=== PATIENT | male | born 1995 | race Caucasian/White ===

== ENCOUNTER 2024-08-24 22:39 | Emergency (ER) | payer MEDICAID, OTHER ==
[~2024-08-24] VITALS: Ht 172.7 cm; Wt 102.0 kg
[2024-08-24 22:48] VITALS: O2SAT 98
[2024-08-24 23:30] LABS: BASOPHILS % 0.9 % (0.0-2.0); EOSINOPHILS % 1.8 % (0.0-5.0); HEMATOCRIT. 39.7 % (42.0-52.0); HEMOGLOBIN. 13.7 g/dL (14.0-18.0); LYMPHOCYTES % 33.8 % (20.0-50.0); MEAN CORPUSCULAR HEMOGLOBIN 31.1 pg (28.0-32.0); MEAN CORPUSCULAR HGB CONC 34.6 g/dL (31.0-37.0); MEAN CORPUSCULAR VOLUME 89.8 fL (80.0-94.0); MEAN PLATELET VOLUME 9.4 fl (7.4-10.4); MONOCYTES % 10.2 % (2.0-8.0); NEUTROPHILS % 53.3 % (40.0-76.0); PLATELET 242 x1000/uL (130-400); RED BLOOD CELL COUNT 4.42 mill/uL (4.7-6.1); RED CELL DISTRIBUTION WIDTH 13.2 % (11.6-14.6); WHITE BLOOD COUNT 8.4 x1000/uL (4.5-11.0)
[2024-08-24 23:37] LABS: CHLORIDE 106 mEq/L (98-107); POTASSIUM 3.8 mEq/L (3.5-5.1); SODIUM 141 mEq/L (136-145)
[2024-08-24 23:38] LABS: CALCIUM 9.3 mg/dL (8.7-10.4); CARBON DIOXIDE 27 mEq/L (21-32)
[2024-08-24 23:40] LABS: PARTIAL THROMBOPLASTIN TIME 27.4 sec (23.4-31.0); PROTHROMBIN TIME 10.6 sec (9.6-11.0)
[2024-08-24 23:43] LABS: CREATININE 1.2 mg/dL (0.6-1.3); GLUCOSE 114 mg/dL (70-105); UREA NITROGEN BLOOD 11 mg/dL (9-23)
[2024-08-24 23:44] LABS: ETHANOL BLOOD < 10 mg/dL (<10)
[2024-08-24] MEDS: CHLORDIAZEPOXIDE 25MG CAPSULE PO ONE (23:54)
[2024-08-25 00:09] LABS: TROPONIN I HIGH SENSITIVITY < 4 ng/L (3.0-53)
[2024-08-25 01:47] LABS: TROPONIN I HIGH SENSITIVITY < 4 ng/L (3.0-53)
[2024-08-25] MEDS ORDERED: HYDR-459 MT (02:17)
[2024-08-25 02:24] VITALS: BP 144/80; PULSE 89; RESP 16; TEMP 36.9; O2SAT 99
== END 2024-08-25 02:39 | disposition home or self-care (01) ==
LOC: ER 22:39
DX: R07.89 Other chest pain (principal); F15.10 Other stimulant abuse, uncomplicated; R03.0 Elevated blood-pressure reading, without diagnosis of hypertension; F10.20 Alcohol dependence, uncomplicated; Y90.9 Presence of alcohol in blood, level not specified
CPT/HCPCS: 36415; 71045; 80048; 80320; 83880; 84484; 85025; 93005; 99285; G0480

== ENCOUNTER 2024-12-03 21:04 | Emergency (ER) | payer OTHER ==
[~2024-12-03] VITALS: Ht 180.3 cm; Wt 99.6 kg
[~2024-12-03 21:04] MED LIST: HYDR-459 MT
[2024-12-03 21:07] VITALS: O2SAT 95
[2024-12-03] MEDS ORDERED: LORAZEPAM 2MG/ML UD SYRINGE IV SCH (22:00)
[2024-12-03 22:19] LABS: BASOPHILS % 0.7 % (0.0-2.0); EOSINOPHILS % 0.3 % (0.0-5.0); HEMATOCRIT. 41.2 % (42.0-52.0); HEMOGLOBIN. 14.3 g/dL (14.0-18.0); LYMPHOCYTES % 23.6 % (20.0-50.0); MEAN PLATELET VOLUME 9.5 fl (7.4-10.4); MONOCYTES % 11.8 % (2.0-8.0); NEUTROPHILS % 63.6 % (40.0-76.0); PLATELET 292 x1000/uL (130-400); RED BLOOD CELL COUNT 4.66 mill/uL (4.7-6.1); RED CELL DISTRIBUTION WIDTH 13.3 % (11.6-14.6)
[2024-12-03] MEDS: SODIUM CHLORIDE 0.9% 1,000 ML IV ONE (22:23)
[2024-12-03 22:31] LABS: CREATININE 1.1 mg/dL (0.6-1.3); UREA NITROGEN BLOOD 20 mg/dL (9-23)
[2024-12-03 22:33] LABS: TROPONIN I HIGH SENSITIVITY < 4 ng/L (3.0-53)
[2024-12-03] MEDS: FOLIC ACID 1 MG, THIAMINE HCL 100 MG, MVI, ADULT NO.1 10 ML in DEXTROSE 5% WATER 1,000 ML IV ONE (23:01)
[2024-12-03] MEDS: CHLORDIAZEPOXIDE 25MG CAPSULE PO ONE (23:15)
[2024-12-03] MEDS: CHLORDIAZEPOXIDE 25MG CAPSULE PO NR (23:16)
[2024-12-03] MEDS: LORAZEPAM 2MG/ML UD SYRINGE IV NR (23:16)
[2024-12-03 23:59] LABS: *AMPHETAMINES SCREEN URINE PRESUMPTIVE POSITIVE (NEGATIVE); *BARBITURATES SCREEN URINE NEGATIVE (NEGATIVE); *BENZODIAZEPINES SCREEN URINE PRESUMPTIVE POSITIVE (NEGATIVE); *COCAINE SCREEN URINE NEGATIVE (NEGATIVE); CANNABINOID URINE SCREEN NEGATIVE (NEGATIVE); ECSTASY MDMA SCREEN URINE CONF.TEST INDICATED (NEGATIVE); METHADONE URINE SCREEN NEGATIVE (NEGATIVE); OPIATES URINE SCREEN NEGATIVE (NEGATIVE); PHENCYCLIDINE URINE SCREEN NEGATIVE (NEGATIVE)
[2024-12-04] MEDS: SODIUM CHLORIDE 0.9% 1,000 ML IV ONE (01:40)
[2024-12-04 03:02] VITALS: BP 125/82; PULSE 110; RESP 20; TEMP 36.5; O2SAT 100
[2024-12-04] MEDS ORDERED: GABA800T97 PO (14:47)
[2024-12-04] MEDS ORDERED: OLAN15TA97 PO (14:49)
[2024-12-04] MEDS ORDERED: BUPR450T5 PO (14:49)
== END 2024-12-04 03:25 | disposition home or self-care (01) ==
LOC: ER 21:04
DX: F10.20 Alcohol dependence, uncomplicated (principal); F15.20 Other stimulant dependence, uncomplicated; F17.200 Nicotine dependence, unspecified, uncomplicated; R07.9 Chest pain, unspecified; Y90.9 Presence of alcohol in blood, level not specified
CPT/HCPCS: 80305; 80048; 80307; 80329; 80320; 85025; 84484; 36415; 71045; 93005; 96365; 96366; 99285; 96361; J3490 ×2; J2060; J3411; J7070; J7030 ×2; G0480

== ENCOUNTER 2024-12-20 06:51 | Emergency (ER) | payer OTHER ==
[~2024-12-20] VITALS: Ht 177.8 cm; Wt 80.0 kg
[~2024-12-20 06:51] MED LIST changes: +BUPR-46 PO; +BUPR8TAB3 SL; +FOLI-43 PO; +GABA800T97 PO; -HYDR-459 MT; +MIRT45TA83 PO; +OLAN15TA97 PO; +THIA100T72 PO
[2024-12-20 06:56] VITALS: O2SAT 95
[2024-12-20 07:25] LABS: HEMATOCRIT. 40.0 % (42.0-52.0); HEMOGLOBIN. 13.4 g/dL (14.0-18.0); MEAN PLATELET VOLUME 10.2 fl (7.4-10.4); PLATELET 213 x1000/uL (130-400); RED BLOOD CELL COUNT 4.44 mill/uL (4.7-6.1); RED CELL DISTRIBUTION WIDTH 13.7 % (11.6-14.6)
[2024-12-20] MEDS: LORAZEPAM 2MG/ML UD SYRINGE IV NR (07:25)
[2024-12-20 07:37] LABS: CREATININE 1.0 mg/dL (0.6-1.3); UREA NITROGEN BLOOD 10 mg/dL (9-23)
[2024-12-20 07:38] LABS: TROPONIN I HIGH SENSITIVITY < 4 ng/L (3.0-53)
[2024-12-20 08:25] LABS: CLARITY URINE CLEAR (CLEAR); COLOR URINE YELLOW (YELLOW); GLUCOSE URINE NEGATIVE (NEGATIVE); KETONES URINE NEGATIVE (NEGATIVE); LEUKOCYTE ESTERASE URINE NEGATIVE (NEGATIVE); NITRITE URINE NEGATIVE (NEGATIVE); OCCULT BLOOD URINE NEGATIVE (NEGATIVE); PH URINE 5.5 (4.5-8.0); PROTEIN URINE 1+ (NEGATIVE); SPECIFIC GRAVITY URINE 1.029 (1.005-1.030); UROBILINOGEN URINE 1.0 E.U./dL (0.2-1.0)
[2024-12-20 08:40] LABS: MUCUS URINE 1+ /lpf (NONE/TRACE); SQUAMOUS EPITHELIAL CELL URINE NONE SEEN /lpf (RARE/1+)
[2024-12-20 08:41] LABS: BACTERIA URINE TRACE; CALCIUM OXALATE CRYSTALS URINE 3+ /lpf
[2024-12-20 08:43] LABS: *AMPHETAMINES SCREEN URINE PRESUMPTIVE POSITIVE (NEGATIVE); *BARBITURATES SCREEN URINE NEGATIVE (NEGATIVE); *BENZODIAZEPINES SCREEN URINE PRESUMPTIVE POSITIVE (NEGATIVE); *COCAINE SCREEN URINE NEGATIVE (NEGATIVE); CANNABINOID URINE SCREEN NEGATIVE (NEGATIVE); ECSTASY MDMA SCREEN URINE CONF.TEST INDICATED (NEGATIVE); METHADONE URINE SCREEN NEGATIVE (NEGATIVE); OPIATES URINE SCREEN NEGATIVE (NEGATIVE); PHENCYCLIDINE URINE SCREEN NEGATIVE (NEGATIVE); RBC URINE NONE SEEN /hpf (0-2); WBC URINE NONE SEEN /hpf (0-2)
[2024-12-20 09:10] LABS: EOSINOPHILS % MANUAL 1.0 % (0.0-5.0); LYMPHOCYTES % MANUAL 32.0 % (20.0-50.0); MONOCYTES % MANUAL 11.0 % (2.0-8.0); NEUTROPHILS % MANUAL 56.0 % (45.0-75.0); PLATELET ESTIMATE NORMAL
[2024-12-20] MEDS: LEVETIRACETAM 500MG PREMIX 100 ML IV ONE ×2 (10:30→10:57)
[2024-12-20] MEDS: LORAZEPAM 2MG/ML UD SYRINGE IV SCH (12:44)
[2024-12-20 12:47] VITALS: BP 100/69; PULSE 68; RESP 24; TEMP 36.9; O2SAT 98
== END 2024-12-20 13:30 | disposition short-term general hospital (02) ==
LOC: ER 07:22 → CMPBEDREQ 17:44
DX: R56.9 Unspecified convulsions (principal); F17.200 Nicotine dependence, unspecified, uncomplicated; F15.90 Other stimulant use, unspecified, uncomplicated; Z79.899 Other long term (current) drug therapy
CPT/HCPCS: 80305; 80048; 81003; 80320; 82962; 83605; 85025; 84484; 36415; 93005; 96365; 96375; 96376; 99285; J1953; J2060; G0480

== ENCOUNTER 2025-02-15 18:04 | Emergency (ER) | payer MEDICAID, OTHER ==
[~2025-02-15] VITALS: Ht 182.9 cm; Wt 100.0 kg
[2025-02-15 18:05] VITALS: O2SAT 99
[2025-02-15] MEDS: LORAZEPAM 0.5MG TABLET PO ONE (19:04)
[2025-02-15] MEDS: CHLORDIAZEPOXIDE 25MG CAPSULE PO ONE (19:04)
[2025-02-15] MEDS: ACETAMINOPHEN 325MG TABLET PO ONE (19:04)
[2025-02-15 21:30] VITALS: BP 124/78; PULSE 96; RESP 12; TEMP 37.2; O2SAT 99
== END 2025-02-15 21:47 | disposition home or self-care (01) ==
LOC: ER 18:04
DX: F10.239 Alcohol dependence with withdrawal, unspecified (principal); F11.23 Opioid dependence with withdrawal; F41.9 Anxiety disorder, unspecified; Z79.899 Other long term (current) drug therapy; Y90.9 Presence of alcohol in blood, level not specified
CPT/HCPCS: 93005; 99284; A4606